=== PATIENT | female | born 1995 | race Caucasian/White ===

== ENCOUNTER 2017-11-25 00:29 | Inpatient (IN) | payer OTHER ==
[~2017-11-25] VITALS: Ht 152.4 cm; Wt 90.7 kg
[2017-11-25] MEDS ORDERED: PRENATAL TABLE1 EAC1 PO (09:31)
[2017-12-01] MEDS ORDERED: MOTRIN IB200 MG PO (21:46)
== END 2017-11-30 11:44 | DRG 765 ==
LOC: OBS/DEL 00:29 → OB/GYN 08:24 → OBS/DEL 08:24 → LDR 08:24 → OB/GYN 12:10
PROVIDERS: Specialist
PROC: BY4FZZZ Ultrasonography of Third Trimester, Single Fetus (ICD-10-PCS; 2017-11-25)
PROC: 10907ZC Drainage of Amniotic Fluid, Therapeutic from Products of Conception, Via Natural or Artificial Opening (ICD-10-PCS; 2017-11-27)
PROC: 4A033R1 Measurement of Arterial Saturation, Peripheral, Percutaneous Approach (ICD-10-PCS; 2017-11-27)
PROC: 4A1HXCZ Monitoring of Products of Conception, Cardiac Rate, External Approach (ICD-10-PCS; 2017-11-27)
PROC: 10D00Z1 Extraction of Products of Conception, Low, Open Approach (ICD-10-PCS; principal; 2017-11-27 21:00)
DX: O76 Abnormality in fetal heart rate and rhythm complicating labor and delivery (principal); O98.82 Other maternal infectious and parasitic diseases complicating childbirth; O13.4 Gestational [pregnancy-induced] hypertension without significant proteinuria, complicating childbirth; B95.1 Streptococcus, group B, as the cause of diseases classified elsewhere; Z3A.38 38 weeks gestation of pregnancy; Z37.0 Single live birth

== ENCOUNTER 2017-12-01 20:46 | Inpatient (IN) | payer OTHER ==
[~2017-12-01] VITALS: Ht 157.5 cm; Wt 91.6 kg
[~2017-12-01 20:46] MED LIST: PRENATAL TABLE1 EAC1 PO
[2017-12-01] MEDS ORDERED: MOTRIN IB200 MG PO (21:46)
== END 2017-12-04 11:05 | DRG 776 ==
LOC: OB/GYN 20:46 → LDR 20:46 → OB/GYN 21:20 → LDR 22:30 → OB/GYN 12-02 15:28
PROC: B030ZZZ Magnetic Resonance Imaging (MRI) of Brain (ICD-10-PCS; principal; 2017-12-03)
DX: O15.2 Eclampsia complicating the puerperium (principal); G40.802 Other epilepsy, not intractable, without status epilepticus
CPT/HCPCS: 70553

== ENCOUNTER 2020-05-29 16:36 | Emergency (ER) | payer OTHER ==
[~2020-05-29] VITALS: Ht 157.5 cm; Wt 91.2 kg
[~2020-05-29 16:36] MED LIST changes: +MOTRIN IB200 MG PO
[2020-05-30] MEDS ORDERED: KEFLEX500 MG PO (01:31)
== END 2020-05-30 01:35 | disposition home or self-care (01) ==
LOC: ER 16:36
DX: O23.32 Infections of other parts of urinary tract in pregnancy, second trimester (principal); O26.892 Other specified pregnancy related conditions, second trimester; R68.83 Chills (without fever); Z3A.20 20 weeks gestation of pregnancy

== ENCOUNTER → 2020-06-03 | Outpatient (CLI) | payer OTHER ==
[~2020-06-03] MED LIST changes: +KEFLEX500 MG PO
== END | disposition home or self-care (01) ==
LOC: PRENATAL 14:01
PROVIDERS: ATTEND Obstetrics & Gynecology Maternal & Fetal Medicine
DX: O35.0XX1 Maternal care for (suspected) central nervous system malformation in fetus, fetus 1 (principal); O35.3XX1 Maternal care for (suspected) damage to fetus from viral disease in mother, fetus 1; O98.512 Other viral diseases complicating pregnancy, second trimester; O34.211 Maternal care for low transverse scar from previous cesarean delivery; O99.212 Obesity complicating pregnancy, second trimester; Z36.89 Encounter for other specified antenatal screening; Z3A.21 21 weeks gestation of pregnancy

== ENCOUNTER 2020-07-27 23:00 | Outpatient (CLI) | payer OTHER ==
[2020-07-27] MEDS ORDERED: CHILDREN'S ASPI81 MG PO (23:08)
[2020-07-27] MEDS ORDERED: PRENATAL TABLE1 EAC1 PO (23:08)
== END 2020-07-28 13:58 | disposition home or self-care (01) ==
LOC: OBS/DEL 23:00
PROVIDERS: ATTEND Obstetrics & Gynecology
DX: O23.593 Infection of other part of genital tract in pregnancy, third trimester (principal); N76.0 Acute vaginitis

== ENCOUNTER → 2020-07-31 | Outpatient (CLI) | payer OTHER ==
[~2020-07-31] MED LIST changes: +CHILDREN'S ASPI81 MG PO
== END | disposition home or self-care (01) ==
LOC: PRENATAL 07-15 14:30
PROVIDERS: ATTEND Obstetrics & Gynecology Maternal & Fetal Medicine
DX: O26.843 Uterine size-date discrepancy, third trimester (principal); O99.213 Obesity complicating pregnancy, third trimester; Z36.89 Encounter for other specified antenatal screening; Z3A.29 29 weeks gestation of pregnancy

== ENCOUNTER 2020-08-19 22:02 | Outpatient (CLI) | payer OTHER | END 2020-08-20 18:26 | disposition home or self-care (01) | LOC: OBS/DEL 22:02 | PROVIDERS: ATTEND Obstetrics & Gynecology | DX: O36.8130 Decreased fetal movements, third trimester, not applicable or unspecified (principal); Z3A.32 32 weeks gestation of pregnancy ==

== ENCOUNTER 2020-09-11 09:38 | Outpatient (CLI) | payer OTHER | END 2020-09-12 07:27 | disposition still patient (30) | LOC: OBS/DEL 09:38 | PROVIDERS: ATTEND Obstetrics & Gynecology | DX: O26.843 Uterine size-date discrepancy, third trimester (principal); O36.8131 Decreased fetal movements, third trimester, fetus 1; Z3A.35 35 weeks gestation of pregnancy ==